=== PATIENT | male | born 1980 | race Caucasian/White ===

== ENCOUNTER 2016-11-07 19:15 | Emergency (ER) | payer BC ==
[2016-11-07] MEDS ORDERED: ZYRTEC10 M3 PO (19:22)
[2016-11-07] MEDS ORDERED: CLARITIN LIQUI-10 MG PO (19:22)
[2016-11-07] MEDS ORDERED: MELOXICAM7.5 MG PO (20:51)
[2016-11-07] MEDS ORDERED: NORCO 325 MG-51 TAB PO (20:51)
[2016-11-07 21:00] VITALS: BP 123/76
== END 2016-11-07 21:00 | disposition home or self-care (01) ==
LOC: ED 19:15
DX: M25.512 Pain in left shoulder (principal); G56.22 Lesion of ulnar nerve, left upper limb

== ENCOUNTER 2022-03-31 20:10 | Emergency (ER) | payer BC ==
[~2022-03-31] VITALS: Ht 177.8 cm; Wt 83.9 kg
[~2022-03-31 20:10] MED LIST: CLARITIN LIQUI-10 MG PO; MELOXICAM7.5 MG PO; NORCO 325 MG-51 TAB PO; ZYRTEC10 M3 PO
[2022-03-31 20:55] LABS: BASO # 0.04 K/mm3 (0.02-0.10); EOS # 0.24 K/mm3 (0.04-0.40); EOS % 3.5 % (0.0-4.0); HEMATOCRIT 42.3 % (42.0-52.0); HEMOGLOBIN 14.2 g/dL (13.5-18.0); LYMPH# 2.27 K/mm3 (1.50-4.00); MEAN CELL VOLUME 89 fl (78-100); MEAN CORPUSCULAR HEMOGLOBIN 30 pg (27-31); MEAN CORPUSCULAR HGB CONC 34 g/dL (33-37); MEAN PLATELET VOLUME 9.2 fl (7.4-10.4); MONO # 0.47 K/mm3 (0.20-0.80); NEU # 3.77 K/mm3 (1.40-6.50); PLATELET COUNT 260 K/mm3 (130-400); RED BLOOD COUNT 4.77 M/mm3 (4.20-5.60); RED CELL DISTRIBUTION WIDTH 13.1 % (11.5-14.5); WHITE BLOOD COUNT 6.8 K/mm3 (4.8-10.8)
[2022-03-31 21:07] LABS: ALBUMIN 4.2 g/dL (3.5-5.0)
[2022-03-31 21:08] LABS: POTASSIUM 3.9 mmol/L (3.5-5.1); SODIUM 143 mmol/L (136-145)
[2022-03-31 21:09] LABS: CALCIUM 9.4 mg/dL (8.3-10.5)
[2022-03-31 21:10] LABS: GLUCOSE 113 mg/dL (75-110)
[2022-03-31 21:11] LABS: CARBON DIOXIDE 24 mmol/L (22-29)
[2022-03-31 21:12] LABS: TOTAL BILIRUBIN 0.3 mg/dL (0.2-1.2)
[2022-03-31 21:15] LABS: AST-SGOT 14 U/L (5-34)
[2022-03-31 21:16] LABS: ALT/SGPT 18 U/L (0-55); MAGNESIUM 2.06 mg/dL (1.60-2.60)
[2022-03-31 21:24] LABS: TROPONIN-I < 0.030 ng/mL (<0.030)
[2022-03-31 21:52] VITALS: BP 115/73
== END 2022-03-31 21:53 | disposition home or self-care (01) ==
LOC: ED 20:10
PROVIDERS: Physician Assistant
DX: R20.2 Paresthesia of skin (principal); F17.200 Nicotine dependence, unspecified, uncomplicated